=== PATIENT | male | born 1975 | race Caucasian/White ===

== ENCOUNTER 2019-05-25 12:38 | Emergency (ER) | payer OTHER ==
[~2019-05-25] VITALS: Ht 188 cm; Wt 86.2 kg
[2019-05-25] MEDS ORDERED: DIPHTH,PERTUSS(ACELL),TET TOX 0.5 ML DISP.SYRIN. VAX IM ONE (13:30)
[2019-05-25] MEDS ORDERED: ONDANSETRON PF 4 MG/2 ML VIAL. IV ONE (13:30)
[2019-05-25] MEDS ORDERED: MORPHINE SULFATE 4 MG/ML VIAL. IV ONE (13:30)
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
[2019-05-25] MEDS ORDERED: HYDROmorphone 2 MG/ML VIAL IV ONE (14:30)
[2019-05-25 16:06] VITALS: BP 110/62
[2019-05-25] MEDS ORDERED: HYDR-2761 PO (16:07)
--- NOTE | 2019-05-25 16:08 | RAD ---
Indication: Status post reduction TECHNIQUE: 3 views of the right wrist COMPARISON: Study from the same day earlier FINDINGS/ impression: Comminuted fracture is seen of the distal radius with extension to the distal radioulnar joint. The fracture fragments are in near anatomic alignment. Stable mild angulation is seen. Stable wrist edema. Fracture of the ulnar styloid process, age indeterminate. Electronically signed by: Vin Rangel DO (05/25/2019 4:04 PM) [facility]
== END 2019-05-25 16:20 | disposition home or self-care (01) ==
LOC: ER 12:38
DX: S52.501A Unspecified fracture of the lower end of right radius, initial encounter for closed fracture (principal); S52.691A Other fracture of lower end of right ulna, initial encounter for closed fracture; V29.49XA Motorcycle driver injured in collision with other motor vehicles in traffic accident, initial encounter; Y93.89 Activity, other specified; Y92.488 Other paved roadways as the place of occurrence of the external cause; Y99.8 Other external cause status
CPT/HCPCS: 25605; 73110; 90471; 90715; 96374; 96375; 99284; J1170; J2270; J2405

== ENCOUNTER 2019-05-31 07:20 | Day surgery (SDC) | payer OTHER ==
[~2019-05-31] VITALS: Ht 190.5 cm; Wt 90.9 kg
[~2019-05-31 07:20] MED LIST: HYDR-2761 PO; HYDROmorphone 2 MG/ML VIAL IV PRN; LIDOCAINE 1% PF 2 ML VIAL. ID PRN; MORPHINE SULFATE 2 MG/ML VIAL. IV PRN; ONDANSETRON PF 4 MG/2 ML VIAL. IV PRN; PROCHLORPERAZINE 10 MG/2 ML VIAL. IV PRN; fentaNYL PF VIAL 100 MCG/2 ML VIAL IV PRN
[2019-05-31] MEDS ORDERED: fentaNYL PF VIAL 100 MCG/2 ML VIAL ONE ×2 (07:55→09:22)
[2019-05-31] MEDS ORDERED: NEOSTIGMINE METHYLSULFATE 5 MG/5 ML SYRINGE. ONE (07:55)
[2019-05-31] MEDS ORDERED: GLYCOPYRROLATE 1 MG/5 ML VIAL. ONE (07:55)
[2019-05-31] MEDS ORDERED: ROCURONIUM 50 MG/5 ML VIAL. ONE (07:55)
[2019-05-31] MEDS ORDERED: MIDAZOLAM HCL/PF 2 MG/2 ML VIAL. ONE (07:56)
[2019-05-31] MEDS: IV RINGERS,LACTATED 1000ML 1,000 ML IV SCH ×2 (07:56→10:36)
[2019-05-31] MEDS ORDERED: ONDANSETRON PF 4 MG/2 ML VIAL. ONE (07:57)
[2019-05-31] MEDS ORDERED: KETOROLAC 30 MG/ML INJ FOR OR. INJ ONE (07:57)
[2019-05-31] MEDS ORDERED: LIDOCAINE 2% PF 5 ML VIAL. ONE (07:57)
[2019-05-31] MEDS ORDERED: DEXAMETHASONE SOD PHOS 4 MG/ML VIAL ONE (07:57)
[2019-05-31] MEDS ORDERED: PROPOFOL 20 ML IV ONE (07:57)
[2019-05-31] MEDS ORDERED: ceFAZolin 2GM PREMIX 2 GM/50 ML BAG IV ONE (08:00)
[2019-05-31] MEDS ORDERED: BUPIVACAINE MPF 0.5% 30 ML VIAL. ONE (08:35)
[2019-05-31] MEDS ORDERED: LIDOCAINE 1% 20 ML VIAL. ONE (08:35)
--- NOTE | 2019-05-31 09:05 | DISCH ---
DISCHARGE INSTRUCTIONS Condition on Discharge Condition on Discharge: Stable Activity After Discharge Activity Instructions for Disc: Other ROM activity Other activity instructions: ok to wigle fingers Bathing Instructions: Shower-keep dressing dry Weight Bearing Status after Di: Non weight bearing Diet after Discharge Diet after Discharge: Regular Wound Incision Care Wound/Incision Care: Ice to area for comfort, Keep wound/cast CDI, Keep wound elevated, Do not change dressing Contacting the DR. after DC Call your doctor for: Concerns you may have Follow-Up Follow up with: Greg in 2 wks PHANI MONTGOMERY II, MD May 31, 2019 09:05
[2019-05-31] MEDS ORDERED: OXYC1TAB15 PO (10:09)
[2019-05-31] MEDS ORDERED: ONDA8TAB9 PO/SL (10:10)
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
[2019-05-31] MEDS ORDERED: MORPHINE SULFATE 4 MG/ML VIAL. ONE (11:03)
[2019-05-31] MEDS ORDERED: MORPHINE SULFATE 4 MG/ML VIAL. IV ONE (11:08)
[2019-05-31] MEDS: fentaNYL PF VIAL 100 MCG/2 ML VIAL IV PRN ×2 (11:15→12:13)
[2019-05-31] MEDS ORDERED: oxyCODONE/APAP 5/325 1 TAB TABLET PO ONE ×2 (11:30→12:30)
[2019-05-31 12:10] VITALS: BP 118/62
== END 2019-05-31 12:49 | disposition home or self-care (01) ==
LOC: SURG 07:20
PROVIDERS: ATTEND Orthopaedic Surgery Sports Medicine
DX: S52.571A Other intraarticular fracture of lower end of right radius, initial encounter for closed fracture (principal); W19.XXXA Unspecified fall, initial encounter; Y93.89 Activity, other specified; Y92.89 Other specified places as the place of occurrence of the external cause; Y99.8 Other external cause status
CPT/HCPCS: 25608; 76000; A7015; C1713; J0696; J1100; J1885; J2001; J2250; J2270; J2405; J2704; J2710; J3010; J3490; J7120